=== PATIENT | female | born 1970 | race Caucasian/White ===

== ENCOUNTER 2019-04-24 21:48 | Inpatient (IN) | payer OTHER ==
[~2019-04-24] VITALS: Ht 177.8 cm; Wt 104.5 kg
[2019-04-24 21:54] VITALS: Ht 177.8 cm; Wt 104.5 kg
--- NOTE | 2019-04-24 22:02 | NUR ---
PT PRESENTS TO ED WITH C/O ALLERGIC REACTION TO NORCO. PT STS SHE'S ALLERGIC TO ACETAMINOPHEN WITH HISTORY OF ALLERGIC REACTION WITH SAME SYMPTOMS. GENERALIZED BODY RASH AND HIVES NOTED TO UPPER AND LOWER EXTREMITIES. PT DENIES ANY SOB. DENIES ANY N/V. PT STS TAKING NORCO D/T FEELING SEVERE MIGRAINE. PT DENIES ANY HEACHACHE AT THIS TIME. PT PLACED ON FULL CM. WILL CONTINUE TO MONITOR.
--- NOTE | 2019-04-24 22:19 | NUR ---
DR WILLIS AT BEDSIDE FOR MSE.
--- NOTE | 2019-04-24 23:50 | NUR ---
LAB AT BEDSIDE
[2019-04-25 00:07] LABS: BASOPHIL % 0.5 % (0-2); PLATELET COUNT 354 x10^3mcL (130-400); RED CELL DISTRIBUTION WIDTH 13.5 % (11.5-14.5)
[2019-04-25 00:22] LABS: CALCIUM 7.6 mg/dL (8.5-10.1); CARBON DIOXIDE 26.7 mmol/L (21-32); CHLORIDE SERUM 104 mmol/L (98-107); CREATININE SERUM 0.9 mg/dL (0.6-1.0); GFR1 > 60 mL/min; GLUCOSE SERUM 101 mg/dL (74-106); POTASSIUM SERUM 3.7 mmol/L (3.5-5.1); SODIUM SERUM 140 mmol/L (136-145)
[2019-04-25 00:26] LABS: ALBUMIN 3.4 g/dL (3.4-5.0); ALKALINE PHOSPHATASE 94 U/L (46-116); ALT/SGPT 17 U/L (14-59); AST/SGOT 16 U/L (15-37); BILIRUBIN TOTAL 0.7 mg/dL (0.20-1.00); TOTAL PROTEIN, SERUM 6.4 g/dL (6.4-8.2)
[2019-04-25] MEDS ORDERED: MULTI-VITAMINS1 TAB PO (00:46)
[2019-04-25] MEDS ORDERED: INTRINSI B12-F1 EACH PO (00:47)
--- NOTE | 2019-04-25 01:02 | NUR ---
REPORT GIVEN TO EDRE RN TO ASSUME CARE
--- NOTE | 2019-04-25 01:30 | NUR ---
RECEIVED PT FROM ED. PT AOX4. DENIES KEITA/DIZZINESS. MED SURG PT, DENIES CP/PRESSURE. DENIES SOB/DIFFICULTY BREATHING, ON RA. HIVES NOTED ALL OVER BODY. IV TO RAC, INTACT AND PATENT. BED IN LOWEST POSITION. CALL LIGHT WITHIN REACH. WILL CONTINUE TO MONITOR.
[2019-04-25 01:37] VITALS: BP 113/68
[2019-04-25 05:34] VITALS: BP 120/75
--- NOTE | 2019-04-25 07:21 | NUR ---
RECIEVED PT FROM HUB LEAD NURSE. PT RESTING IN BED, AOX4, RESP E/U ON RA. NO ACUTE DISTRESS NOTED AT THIS TIME. SALINE LOCKED TO RAC W/ NO ERYTHEMA OR EDEMA. ON CONTACT PRECAUTIONS FOR HX OF MRSA. BED IN LOWEST POSITION AND CALL LIGHT WITHIN REACH. WILL CONTINUE TO MONITOR.
[2019-04-25 09:28] VITALS: BP 131/71
[2019-04-25 11:25] VITALS: BP 131/71
--- NOTE | 2019-04-25 12:04 | NUR ---
PT DISCHARGED. REVIEWED VISIT SUMMARY, EDUCATIONAL PACKET AND NEW RX MEDS W/ PT. PT AOX4, RESP E/U, VS STABLE, DENIES PAIN AT THIS TIME. IV TO RAC REMOVED, CATH INTACT, GAUZE DRESSING APPLIED. PT AMBULATORY TO DOUG, ESCORTED BY [facility] TY W/ NO ACUTE INCIDENCE.
== END 2019-04-25 12:02 | disposition home or self-care (01) | DRG 811 ==
LOC: ED 21:48 → DU 04-25 00:15 → MU 04-25 05:26
PROVIDERS: Specialist; ADMIT Internal Medicine Nephrology
DX: T88.6XXA Anaphylactic reaction due to adverse effect of correct drug or medicament properly administered, initial encounter (principal); E66.9 Obesity, unspecified; J45.909 Unspecified asthma, uncomplicated; F17.210 Nicotine dependence, cigarettes, uncomplicated; G43.909 Migraine, unspecified, not intractable, without status migrainosus; T40.2X5A Adverse effect of other opioids, initial encounter; Y92.89 Other specified places as the place of occurrence of the external cause; Z88.6 Allergy status to analgesic agent
CPT/HCPCS: 99406; G0378; J0171; J1200; J1644; J2930; J3490; J7030; J7512; Q0163

== ENCOUNTER 2019-06-24 04:21 | Emergency (ER) | payer OTHER ==
[~2019-06-24] VITALS: Ht 177.8 cm; Wt 101.8 kg
[~2019-06-24 04:21] MED LIST: INTRINSI B12-F1 EACH PO; MULTI-VITAMINS1 TAB PO
[2019-06-24 04:27] VITALS: Ht 177.8 cm; Wt 101.8 kg
[2019-06-24 07:12] VITALS: BP 139/79
== END 2019-06-24 07:12 | disposition home or self-care (01) ==
LOC: ED 04:21
DX: J45.901 Unspecified asthma with (acute) exacerbation (principal)
CPT/HCPCS: J1100; J7613; J7644

== ENCOUNTER 2019-10-15 02:39 | Emergency (ER) | payer OTHER ==
[~2019-10-15] VITALS: Ht 177.8 cm; Wt 99.4 kg
[2019-10-15 02:45] VITALS: Ht 177.8 cm; Wt 99.4 kg
[2019-10-15 03:50] VITALS: BP 129/79
== END 2019-10-15 03:50 | disposition home or self-care (01) ==
LOC: ED 02:39
DX: J02.9 Acute pharyngitis, unspecified (principal); F17.210 Nicotine dependence, cigarettes, uncomplicated; J45.909 Unspecified asthma, uncomplicated; Z98.890 Other specified postprocedural states; Z88.8 Allergy status to other drugs, medicaments and biological substances
CPT/HCPCS: J7620